=== PATIENT | female | born 1995 | race Caucasian/White ===

== ENCOUNTER 2018-07-27 01:30 | Inpatient (IN) | payer BC ==
[2018-07-27] MEDS ORDERED: Nalbuphine 10 MG/1 ML Vial IVPUSH PRN (01:59)
[2018-07-27] MEDS ORDERED: Misoprostol 200 MCG Tab PO PRN (01:59)
[2018-07-27] MEDS ORDERED: Water For Irrigation,Sterile 1,000 ML Container IRR PRN (01:59)
[2018-07-27] MEDS ORDERED: Tranexamic Acid 1,000 MG in Sodium Chloride 0.9% 100 ML IV PRN (01:59)
[2018-07-27] MEDS ORDERED: Methylergonovine 0.2 MG/1 ML Amp IM PRN (01:59)
[2018-07-27] MEDS ORDERED: Butorphanol 1 MG/ML SDV IVPUSH PRN (01:59)
[2018-07-27] MEDS ORDERED: Lidocaine 1% 50 ML MDV INJECT PRN (01:59)
[2018-07-27] MEDS ORDERED: Carboprost Tromethamine 250 MCG/1 ML Amp IM PRN (01:59)
[2018-07-27] MEDS ORDERED: Sodium Chloride 0.9% 2.5 ML Syringe FLUSH PRN (01:59)
[2018-07-27] MEDS ORDERED: Sodium Chloride 0.9% 10 ML Syringe FLUSH PRN (01:59)
[2018-07-27] MEDS ORDERED: Sodium Chloride 0.9% 10 ML SDV IV PRN (01:59)
[2018-07-27] MEDS ORDERED: Oxytocin/0.9 % Sodium Chloride 30 UNIT/500 ML BAG IV SCH (02:00)
[2018-07-27] MEDS: Lactated Ringers 1,000 ML IV SCH ×2 (02:46→03:41)
--- NOTE | 2018-07-27 03:02 | PCM.PREANE ---
Preanesthetic Assessment - Anesthesia/Transfusion/Family Hx Anesthesia History: Prior Anesthesia Without Reaction Family History of Anesthesia Reaction: No Transfusion History: No Prior Transfusion(s) - Review of Systems General: No Symptoms Pulmonary: No Symptoms Cardiovascular: No Symptoms Gastrointestinal: No Symptoms Neurological: No Symptoms Other: Reports: None - Physical Assessment Height: 5 ft 5 in Weight: 104.326 kg ASA Class: 2 Mental Status: Alert & Oriented x3 Airway Class: Mallampati = 2 Dentition: Reports: Normal Dentition Thyro-Mental Finger Breadths: 3 Mouth Opening Finger Breadths: 3 ROM/Head Extension: Full Lungs: Clear to Auscultation, Normal Respiratory Effort Cardiovascular: Regular Rate, Regular Rhythm - Lab Values: Laboratory Last Values WBC 13.24 K/uL (4.0-11.0) H 07/27/18 02:30 RBC 4.13 M/uL (4.30-5.90) L 07/27/18 02:30 Hgb 11.8 g/dL (12.0-16.0) L 07/27/18 02:30 Hct 35.6 % (36.0-46.0) L 07/27/18 02:30 MCV 86.2 fL (80.0-98.0) 07/27/18 02:30 MCH 28.6 pg (27.0-32.0) 07/27/18 02:30 MCHC 33.1 g/dL (31.0-37.0) 07/27/18 02:30 RDW Std Deviation 42.1 fl (28.0-62.0) 07/27/18 02:30 RDW Coeff of Rey 14 % (11.0-15.0) 07/27/18 02:30 Plt Count 214 K/uL (150-400) 07/27/18 02:30 MPV 10.50 fL (7.40-12.00) 07/27/18 02:30 Nucleated RBC % 0.0 /100WBC 07/27/18 02:30 Nucleated RBCs # 0 K/uL 07/27/18 02:30 - Allergies Allergies/Adverse Reactions: Allergies Allergy/AdvReac Type Severity Reaction Status Date / Time No Known Allergies Allergy Verified 07/27/18 01:58 - Acknowledgements Anesthesia Type Planned: Epidural Pt an Appropriate Candidate for the Planned Anesthesia: Yes Alternatives and Risks of Anesthesia Discussed w Pt/Guardian: Yes Pt/Guardian Understands and Agrees with Anesthesia Plan: Yes PreAnesthesia Questionnaire HEENT History: Reports: None Cardiovascular History: Reports: None Respiratory History: Reports: None Gastrointestinal History: Reports: GERD Genitourinary History: Reports: None [employer] History: Reports: : 1 Para: 0 LMP (Approximate): Musculoskeletal History: Reports: None Neurological History: Reports: None Psychiatric History: Reports: None Endocrine/Metabolic History: Reports: Obesity/BMI 30+ Hematologic History: Reports: None Immunologic History: Reports: None Oncologic (Cancer) History: Reports: None Dermatologic History: Reports: None - Infectious Disease History Infectious Disease History: Reports: None - Past Surgical History GI Surgical History: Reports: Appendectomy, Other (See Below) Other GI Surgeries/Procedures: as a teenager - HOME MEDS Home Medications: Home Meds PNV95/Ferrous Fumarate/FA [ Tablet] 1 tab PO DAILY 06/04/18 [History] - CURRENT (IN HOUSE) MEDS Current Meds: Current Medications Butorphanol Tartrate (Stadol) 1 mg IVPUSH Q1H PRN PRN Reason: Pain Last Admin: 07/27/18 02:42 Dose: 1 mg Carboprost Tromethamine (Hemabate Ds) 250 mcg IM ASDIRECTED PRN PRN Reason: Post Hemorrhage Lactated Ringer's (Ringers, Lactated) 1,000 mls @ 150 mls/hr IV ASDIRECTED ANGÉLICA Last Admin: 07/27/18 02:46 Dose: 999 mls/hr Oxytocin/Sodium Chloride (Oxytocin 30 Unit/500 Ml-Ns) 30 unit in 500 mls @ 999 mls/hr IV TITRATE ANGÉLICA Tranexamic Acid 1,000 mg/ (Sodium Chloride) 110 mls @ 660 mls/hr IV ONETIME PRN PRN Reason: Bleeding Lidocaine HCl (Xylocaine 1%) 50 ml INJECT ONETIME PRN PRN Reason: Laceration repair Methylergonovine Maleate (Methergine) 0.2 mg IM ASDIRECTED PRN PRN Reason: Post Hemorrhage Misoprostol (Cytotec) 200 mcg PO ONETIME PRN PRN Reason: Post Hemorrhage Nalbuphine HCl (Nubain) 10 mg IVPUSH Q1H PRN PRN Reason: Pain (severe 7-10) Sodium Chloride (Saline Flush) 10 ml FLUSH ASDIRECTED PRN PRN Reason: Keep Vein Open Sodium Chloride (Saline Flush) 2.5 ml FLUSH ASDIRECTED PRN PRN Reason: Keep Vein Open Sodium Chloride (Normal Saline) 10 ml IV ASDIRECTED PRN PRN Reason: IV Use Sterile Water (Sterile Water For Irrigation) 1,000 ml IRR ASDIRECTED PRN PRN Reason: delivery
[2018-07-27] MEDS ORDERED: Lidocaine HCl/EPINEPHrine 5 ML IJ ONE (03:04)
--- NOTE | 2018-07-27 07:21 | PCM.DEL ---
L & D Note - General Info Date of Service: 07/27/18 Mother's Due Date: 08/16/18 - Delivery Note Labor: Spontaneous Delivery Outcome: Livebirth Infant Delivery Method: Spontaneous Vaginal Delivery-Single Presentation: Left Occiput Anterior (FRANSISCO) Nuchal Cord: None Prep: Other Anesthesia Type: Epidural Amniotic Fluid Description: Clear Episiotomy Type: None Laceration: Labial (right labial single suture placed for hemostasis) Suture type: Vicryl Suture size: 3-0 Placenta: Intact, Spontaneous Cord: 2 Vessels Estimated Blood Loss: 200 Resuscitation Needed: No [place]: Suctioned Score 1 min: 9 Score 5 min: 10 Delivery Comments (Free Text/Narrative):: Male infant, weight pending. - General Info Date of Service: 07/27/18 - Patient Data Weight - Most Recent: 104.326 kg Lab Results Last 24 Hours: Laboratory Results - last 24 hr 07/27/18 07/27/18 Range/Units 02:30 02:30 WBC 13.24 H (4.0-11.0) K/uL RBC 4.13 L (4.30-5.90) M/uL Hgb 11.8 L (12.0-16.0) g/dL Hct 35.6 L (36.0-46.0) % MCV 86.2 (80.0-98.0) fL MCH 28.6 (27.0-32.0) pg MCHC 33.1 (31.0-37.0) g/dL RDW Std Deviation 42.1 (28.0-62.0) fl RDW Coeff of Rey 14 (11.0-15.0) % Plt Count 214 (150-400) K/uL MPV 10.50 (7.40-12.00) fL Nucleated RBC % 0.0 /100WBC Nucleated RBCs # 0 K/uL Blood Type O POSITIVE Antibody Screen NEGATIVE Med Orders - Current: Current Medications Butorphanol Tartrate (Stadol) 1 mg IVPUSH Q1H PRN PRN Reason: Pain Last Admin: 07/27/18 02:42 Dose: 1 mg Carboprost Tromethamine (Hemabate Ds) 250 mcg IM ASDIRECTED PRN PRN Reason: Post Hemorrhage Lactated Ringer's (Ringers, Lactated) 1,000 mls @ 150 mls/hr IV ASDIRECTED ANGÉLICA Last Admin: 07/27/18 03:41 Dose: 150 mls/hr Oxytocin/Sodium Chloride (Oxytocin 30 Unit/500 Ml-Ns) 30 unit in 500 mls @ 999 mls/hr IV TITRATE [facility] Tranexamic Acid 1,000 mg/ (Sodium Chloride) 110 mls @ 660 mls/hr IV ONETIME PRN PRN Reason: Bleeding Lidocaine HCl (Xylocaine 1%) 50 ml INJECT ONETIME PRN PRN Reason: Laceration repair Methylergonovine Maleate (Methergine) 0.2 mg IM ASDIRECTED PRN PRN Reason: Post Hemorrhage Misoprostol (Cytotec) 200 mcg PO ONETIME PRN PRN Reason: Post Hemorrhage Nalbuphine HCl (Nubain) 10 mg IVPUSH Q1H PRN PRN Reason: Pain (severe 7-10) Sodium Chloride (Saline Flush) 10 ml FLUSH ASDIRECTED PRN PRN Reason: Keep Vein Open Sodium Chloride (Saline Flush) 2.5 ml FLUSH ASDIRECTED PRN PRN Reason: Keep Vein Open Sodium Chloride (Normal Saline) 10 ml IV ASDIRECTED PRN PRN Reason: IV Use Sterile Water (Sterile Water For Irrigation) 1,000 ml IRR ASDIRECTED PRN PRN Reason: delivery Discontinued Medications Fentanyl/Bupivacaine HCl (Fnfzzfjm-Atfhl-Hs 2 Mcg/Ml-0.125%) Confirm Administered Dose 100 mls @ as directed .ROUTE .STK-MED ONE Stop: 07/27/18 03:05 Lidocaine/Epinephrine (Lidocaine 1.5%-Epi 1:200,000) Confirm Administered Dose 5 ml IJ .STK-MED ONE Stop: 07/27/18 03:05 - Problem List & Annotations (1) Vaginal delivery SNOMED Code(s): 132860651 Code(s): O80 - ENCOUNTER FOR FULL-TERM UNCOMPLICATED DELIVERY Status: Acute Current Visit: Yes - Problem List Review Problem List Initiated/Reviewed/Updated: Yes - My Orders Last 24 Hours: My Active Orders 07/27/18 01:59 Patient Status [ADT] Routine Non Stress Test [RC] PER UNIT ROUTINE May Shower [RC] ASDIRECTED Notify Provider [RC] PRN Up ad Vanessa [RC] ASDIRECTED Vital Signs [RC] PER UNIT ROUTINE Butorphanol [Stadol] 1 mg IVPUSH Q1H PRN Carboprost Tromethamine [Hemabate DS] 250 mcg IM ASDIRECTED PRN Lidocaine 1% [Xylocaine 1%] 50 ml INJECT ONETIME PRN Methylergonovine [Methergine] 0.2 mg IM ASDIRECTED PRN Nalbuphine [Nubain] 10 mg IVPUSH Q1H PRN Sodium Chloride 0.9% [Normal Saline] 10 ml IV ASDIRECTED PRN Sodium Chloride 0.9% [Saline Flush] 10 ml FLUSH ASDIRECTED PRN Sodium Chloride 0.9% [Saline Flush] 2.5 ml FLUSH ASDIRECTED PRN Tranexamic Acid [Cyklokapron] 1,000 mg Sodium Chloride 0.9% [Normal Saline] 100 ml IV ONETIME Water For Irrigation,Sterile [Sterile Water for Irrigation] 1,000 ml IRR ASDIRECTED PRN miSOPROStol [Cytotec] 200 mcg PO ONETIME PRN Scalp Electrode [WOMSER] Per Unit Routine Peripheral IV Insertion Adult [OM.PC] Routine Resuscitation Status Routine 07/27/18 02:00 Lactated Ringers [Ringers, Lactated] 1,000 ml IV ASDIRECTED Oxytocin/0.9 % Sodium Chloride [Oxytocin 30 Unit/500 ML-NS] 30 unit in 500 ml IV TITRATE
[2018-07-27] MEDS ORDERED: oxyCODONE 5 MG Tab PO PRN (07:22)
[2018-07-27] MEDS ORDERED: Lanolin 100% Cream 7 GM Tube TOP PRN (07:22)
[2018-07-27] MEDS ORDERED: Benzocaine/Menthol 20%-0.5% Spray 78 GM Cannister TOP PRN (07:22)
[2018-07-27] MEDS ORDERED: Witch Hazel Medicated Pads 40/Jar TOP PRN (07:22)
[2018-07-27] MEDS ORDERED: Bisacodyl 10 MG Supp RECTAL PRN (07:22)
[2018-07-27] MEDS ORDERED: Ibuprofen 400 MG Tab PO PRN (07:22)
[2018-07-27] MEDS ORDERED: Acetaminophen 500 MG Tab PO PRN ×2 (07:22)
[2018-07-27] MEDS ORDERED: Docusate Sodium 100 MG Cap PO PRN (07:22)
--- NOTE | 2018-07-27 08:39 | PCM48HPAN ---
Post Anesthesia Note - EVALUATION WITHIN 48HRS OF ANESTHETIC Vital Signs in Normal Range: Yes Patient Participated in Evaluation: Yes Respiratory Function Stable: Yes Airway Patent: Yes Cardiovascular Function Stable: Yes Hydration Status Stable: Yes Pain Control Satisfactory: Yes Nausea and Vomiting Control Satisfactory: Yes Mental Status Recovered: Yes
[2018-07-27] MEDS: Ibuprofen 800 MG Tab PO PRN ×2 (11:45→18:45)
--- NOTE | 2018-07-27 14:41 | OR ---
SURGEON: Radha Ramirez M.D. DATE OF PROCEDURE: 07/27/2018 PREOPERATIVE DIAGNOSIS: A 37-3/7 weeks intrauterine , active spontaneous labor. POSTOPERATIVE DIAGNOSIS: A 37-3/7 weeks intrauterine , active spontaneous labor. PROCEDURE: Term spontaneous vaginal delivery with repair of a right labial laceration. ANESTHESIA: Epidural. ESTIMATED BLOOD LOSS: Less than 300 mL. FINDINGS: Live-born male, score 9 and 10. Weight is pending. COMPLICATIONS: None known. DISPOSITION: Mother and baby are in LDRP in good condition. BRIEF HISTORY: This is a 23-year-old female. She is G1, P0, who presents in active spontaneous labor, initially 5 cm dilated, rapidly changed to 7 cm. She had category 1 heart tones. She received an epidural for pain control. After the epidural, she had artificial rupture of membranes. She then progressed to complete. DESCRIPTION OF PROCEDURE: The patient in dorsal lithotomy position. The patient pushed over a 45-minute time period to a 5+ station at which time the head was delivered spontaneously and atraumatically over the perineum with support with subsequent delivery of the infant's shoulders and body without any difficulty. The was bulb suctioned by nose and mouth and after the cord had ceased to pulsate, it was doubly clamped and cut and the was handed to the mother in the presence of the nurse attending delivery. The infant was a liveborn male, scores 9 and 10. Weight is pending at the time of dictation. Upon inspection of pelvis and perineum, there were no periurethral, vaginal sidewall, cervical, rectal, or perineal laceration. There was a right labial laceration that did require a [id number] suture of 3-0 Vicryl for hemostasis. Pitocin was initiated after delivery of the to assist with delivery. The placenta which was delivered spontaneously intact with two-vessel and the patient was aware that there was a two vessel cord based on ultrasound. There were no known complications. Mother and baby are in LDR in good condition. NARCISO / EVI /[id number]
[2018-07-28] MEDS: Ibuprofen 800 MG Tab PO PRN (04:12)
--- NOTE | 2018-07-28 08:46 | PCM.PNPP ---
- General Info Date of Service: 07/28/18 Subjective Update: 23 yo P1 s/p stable , [place] , Vital signs stable , PPD 1 Functional Status: Reports: Pain Controlled, Tolerating Diet, Ambulating, Urinating - Review of Systems General: Reports: No Symptoms HEENT: Reports: No Symptoms Pulmonary: Reports: No Symptoms Cardiovascular: Reports: No Symptoms Gastrointestinal: Reports: No Symptoms Genitourinary: Reports: No Symptoms Musculoskeletal: Reports: No Symptoms Skin: Reports: No Symptoms Neurological: Reports: No Symptoms - General Info Date of Service: 07/28/18 - Patient Data Vital Signs - Most Recent: Last Vital Signs Temp 36.6 C 07/28/18 04:35 Pulse 94 07/28/18 04:35 Resp 16 07/28/18 04:35 BP 119/56 L 07/28/18 04:35 Pulse Ox 97 07/28/18 04:35 Weight - Most Recent: 104.326 kg Lab Results - Last 24 Hours: Laboratory Results - last 24 hr 07/28/18 Range/Units 05:03 Hgb 7.9 L (12.0-16.0) g/dL Hct 25.0 L (36.0-46.0) % Med Orders - Current: Current Medications Acetaminophen (Tylenol Extra Strength) 500 mg PO Q4H PRN PRN Reason: Pain Acetaminophen (Tylenol Extra Strength) 1,000 mg PO Q4H PRN PRN Reason: Pain Benzocaine/Menthol (Dermoplast Pain Relief 20%-0.5% [place]) 78 gm TOP ASDIRECTED PRN PRN Reason: Perineal Comfort Measure Last Admin: 07/27/18 11:45 Dose: 78 gm Bisacodyl (Dulcolax) 10 mg RECTAL ONETIME PRN PRN Reason: Constipation Docusate Sodium (Colace) 100 mg PO BID PRN PRN Reason: Constipation Emollient Ointment (Lansinoh Hpa) 0 gm TOP ASDIRECTED PRN PRN Reason: Sore Nipples Last Admin: 07/27/18 11:46 Dose: 7 gm Ibuprofen (Motrin) 400 mg PO Q4H PRN PRN Reason: Pain Ibuprofen (Motrin) 800 mg PO Q6H PRN PRN Reason: Pain Last Admin: 07/28/18 04:12 Dose: 800 mg Oxycodone HCl (Oxycodone) 5 mg PO Q2H PRN PRN Reason: Pain Last Admin: 07/27/18 18:46 Dose: 5 mg Witch Lia (Tucks) 1 pad TOP ASDIRECTED PRN PRN Reason: comfort care Last Admin: 07/27/18 11:46 Dose: 1 pad Discontinued Medications Butorphanol Tartrate (Stadol) 1 mg IVPUSH Q1H PRN PRN Reason: Pain Last Admin: 07/27/18 02:42 Dose: 1 mg Carboprost Tromethamine (Hemabate Ds) 250 mcg IM ASDIRECTED PRN PRN Reason: Post Hemorrhage Lactated Ringer's (Ringers, Lactated) 1,000 mls @ 150 mls/hr IV ASDIRECTED ANGÉLICA Last Admin: 07/27/18 03:41 Dose: 150 mls/hr Oxytocin/Sodium Chloride (Oxytocin 30 Unit/500 Ml-Ns) 30 unit in 500 mls @ 999 mls/hr IV TITRATE ANGÉLICA Tranexamic Acid 1,000 mg/ (Sodium Chloride) 110 mls @ 660 mls/hr IV ONETIME PRN PRN Reason: Bleeding Fentanyl/Bupivacaine HCl (Pjyonhjy-Evfec-Dg 2 Mcg/Ml-0.125%) Confirm Administered Dose 100 mls @ as directed .ROUTE .STK-MED ONE Stop: 07/27/18 03:05 Lidocaine HCl (Xylocaine 1%) 50 ml INJECT ONETIME PRN PRN Reason: Laceration repair Lidocaine/Epinephrine (Lidocaine 1.5%-Epi 1:200,000) Confirm Administered Dose 5 ml IJ .STK-MED ONE Stop: 07/27/18 03:05 Methylergonovine Maleate (Methergine) 0.2 mg IM ASDIRECTED PRN PRN Reason: Post Hemorrhage Misoprostol (Cytotec) 200 mcg PO ONETIME PRN PRN Reason: Post Hemorrhage Nalbuphine HCl (Nubain) 10 mg IVPUSH Q1H PRN PRN Reason: Pain (severe 7-10) Sodium Chloride (Saline Flush) 10 ml FLUSH ASDIRECTED PRN PRN Reason: Keep Vein Open Sodium Chloride (Saline Flush) 2.5 ml FLUSH ASDIRECTED PRN PRN Reason: Keep Vein Open Sodium Chloride (Normal Saline) 10 ml IV ASDIRECTED PRN PRN Reason: IV Use Sterile Water (Sterile Water For Irrigation) 1,000 ml IRR ASDIRECTED PRN PRN Reason: delivery - Infant Interaction Support Person: - Recovery Exam Fundal Tone: Firm Fundal Level: 1 Fingerbreadths Below Umbilicus Fundal Placement: Midline Lochia Amount: Scant Lochia Color: Rubra/Red Perineum Description: Intact, Minimal Bruising/Swelling Episiotomy/Laceration: Approximated Bladder Status: Nonpalpable, Voiding Urinary Elimination: Voided - Exam General: Alert HEENT: Pupils Equal Neck: Supple Lungs: Clear to Auscultation Cardiovascular: Regular Rate, Regular Rhythm GI/Abdominal Exam: Normal Bowel Sounds Extremities: Normal Inspection Psy/Mental Status: Alert - Problem List & Annotations (1) Vaginal delivery SNOMED Code(s): 259119496 Code(s): O80 - ENCOUNTER FOR FULL-TERM UNCOMPLICATED DELIVERY Status: Acute Current Visit: Yes - Problem List Review Problem List Initiated/Reviewed/Updated: Yes - Assessment Assessment:: 23 yo P1 s/p stable , Anemia , VSS stable PPD 1 denies any complains today - Plan Plan:: COntinue Iron supplement at home vitamins Pain control with OTC tylenol and motrin
== END 2018-07-28 15:58 | disposition home or self-care (01) | DRG 560 ==
LOC: MW.OBCHECK 01:30 → MW.OB 01:32 → MW.OBCHECK 02:00 → OBSVTOIN 06:41 → MW.OB 06:41
PROVIDERS: ADMIT Obstetrics & Gynecology; ATTEND Obstetrics & Gynecology
PROC: 10E0XZZ Delivery of Products of Conception, External Approach (ICD-10-PCS; principal; 2018-07-27)
PROC: 0UQMXZZ Repair Vulva, External Approach (ICD-10-PCS; 2018-07-27)
PROC: 10907ZC Drainage of Amniotic Fluid, Therapeutic from Products of Conception, Via Natural or Artificial Opening (ICD-10-PCS; 2018-07-27)
DX: O99.02 Anemia complicating childbirth (principal); O70.0 First degree perineal laceration during delivery; D64.9 Anemia, unspecified; Z3A.37 37 weeks gestation of pregnancy; Z37.0 Single live birth
CPT/HCPCS: 36415; 51702; 59025; 59409; 82803; 85014; 85018; 85027; 86850; 86900; 86901; A9270-GY; J0595; J7120

== ENCOUNTER 2020-06-21 18:16 | Emergency (ER) | payer BC, OTHER ==
--- NOTE | 2020-06-21 18:38 | PCM.EKG ---
#1 Interpretation EKG Date: 06/21/20 Time: 18:21 Rhythm: NSR Rate (Beats/Min): 82 [place]: Normal P-Wave: Present QRS: Normal ST-T: Normal QT: Normal FL/PQ Interval: 140 Comparison: NA - No Prior EKG EKG Interpretation Comments: no evidence of ischemia
[2020-06-21] MEDS ORDERED: Sodium Chloride 0.9% 1,000 ML IV ONE (18:58)
--- NOTE | 2020-06-21 19:08 | EDM.PDOC ---
ED HPI GENERAL MEDICAL PROBLEM - General Chief Complaint: Chest Pain Stated Complaint: CHEST PAIN Time Seen by Provider: 06/21/20 18:29 Source of Information: Reports: Patient History Limitations: Reports: No Limitations - History of Present Illness INITIAL COMMENTS - FREE TEXT/NARRATIVE: HISTORY AND PHYSICAL: History of present illness: Patient is a 25-year-old female who presents to the emergency room with complaints of midsternal chest pain x 3 days. She reports that the pain is intermittent and fluctuates in severity. Has not identified anything that makes the pain better or worse. She has had some mild nausea associated with the chest pain. States the pain will occasionally go into her back and down her left arm. Currently pain is localized and nonradiating. She appears anxious, stating "I feel like there is something really wrong". She went to the clinic, but dissatisfied as they wouldn't "do any tests". Patient denies any fever, chills, headache, change in vision, syncope or near syncope. Denies any back pain, shortness of breath or cough. Denies any abdominal pain, vomiting, diarrhea, constipation or dysuria. Has not noted any blood in urine or stool. No concern for . Patient has been eating and drinking appropriately. No recent travel. No recent sick close contacts. States she has a significant family history of heart disease, no sudden cardiac . Personal history of anxiety/depression. No personal cardiopulmonary disease. Review of systems: As per history of present illness and below otherwise all systems reviewed and negative. Past medical history: As per history of present illness and as reviewed below otherwise noncontributory. Surgical history: As per history of present illness and as reviewed below otherwise nonc ontributory. Social history: See social history for further information Family history: As per history of present illness and as reviewed below otherwise noncontributory. Physical exam: General: Well developed and well nourished 25 year old female. Alert and orientated x 3. Nontoxic in appearance and in no acute distress. Vital signs are stable and have been reviewed by me. Nursing notes were reviewed. HEENT: Atraumatic, normocephalic, pupils equal and reactive bilaterally, negative for conjunctival pallor or scleral icterus, mucous membranes moist, neck supple, nontender, trachea midline. No drooling or trismus noted. No meningeal signs. No hot potato voice noted. Lungs: Clear to auscultation bilaterally. No wheezes, rales, or rhonchi. Chest nontender. Normal work of breathing, no accessory muscles used. Heart: S1S2, regular rate and rhythm without overt murmur, gallops, or rubs. No JVD. No peripheral edema Abdomen: Soft, nondistended, nontender. Normoactive bowel sounds. Negative for masses or costovertebral tenderness. Skin: Intact, warm, dry. No lesions or rashes noted. Hematologic: No petechiae or purpra. Mucosa appropriate color and normal nail bed color and refill. Extremities: Atraumatic, moves all extremities per self without difficulty or deficits, negative for cords or calf pain. Neurovascular unremarkable. Neuro: Awake, alert, oriented. Cranial nerves II through XII unremarkable. Cerebellum unremarkable. Motor and sensory unremarkable throughout. Exam nonfocal. Psychiatric: Mood and affect are appropriate. Normal thought process. Answering questions appropriately. Notes: *This patient was seen and evaluated during the 2019 SARS-CoV-2 novel coronavirus pandemic period. Community viral transmission is ongoing at time of this encounter and the emergency department is operating under pandemic response procedures. EKG shows a normal sinus rhythm with rate of 82, no concern for STEMI. No significant lab findings. Chest x-ray shows no acute intrathoracic abnormality. VSS. I have talked with the patient about today's findings, in addition to providing specific details for plan of care. She would like to try something for her anxiety related to this chest pain, which may be the cause of her pain. She states if her pain improves with the Ativan, she will call her MD on Wednesday to have her medications adjusted. Patient feels improvement. VSS. Reassessment at the time of disposition demonstrates that the patient is in no acute distress. The patient is stable for discharge, counseling was provided and we discussed in great detail signs and symptoms that would prompt them to return to the Emergency Department. Medication, follow up and supportive care measures were reviewed and discussed. Voices understanding and is agreeable to plan of care. Denies any further questions or concerns at this time. Diagnostics: CBC, CMP, Troponin, EKG, CXR, D.Dimer, TSH Therapeutics: IV fluids, Ativan Prescription: Ativan (#6) Impression: Chest pain Plan: 1. Your EKG and chest x-ray are within normal limits. Your potassium and TSH (hyperthyroid) are slightly low. These values are not low enough to require any intervention at this time. I would like these rechecked in a few weeks. If your symptoms should worsen, new symptoms develop or any of the signs and symptoms we discussed should arise please return to the emergency room or call 911 (if needed). 2. You can alternate Tylenol and ibuprofen as needed for pain and fever management. If you felt relief with the Ativan, you can take one tab every 8 hours as needed. This medication may cause drowsiness, so do not take while driving or needing to be functioning outside the house. 3. We encourage you to follow up with your primary care provider in the next few days for re-evaluation and further care/management. Definitive disposition and diagnosis as appropriate pending reevaluation and review of above. Chest Pain Score (Numeric/FACES): 6 - Related Data Allergies Allergy/AdvReac Type Severity Reaction Status Date / Time No Known Allergies Allergy Verified 06/21/20 18:33 Home Meds: Home Meds LORazepam [Ativan] 0.5 mg PO TID PRN #6 tab 06/21/20 [Rx] Sertraline [Zoloft] 06/21/20 [History] Past Medical History HEENT History: Reports: None Cardiovascular History: Reports: None Respiratory History: Reports: None Gastrointestinal History: Reports: GERD Genitourinary History: Reports: None [employer] History: Reports: Musculoskeletal History: Reports: None Neurological History: Reports: None Psychiatric History: Reports: Anxiety, Depression Endocrine/Metabolic History: Reports: Obesity/BMI 30+ Hematologic History: Reports: None Immunologic History: Reports: None Oncologic (Cancer) History: Reports: None Dermatologic History: Reports: None - Infectious Disease History Infectious Disease History: Reports: None - Past Surgical History GI Surgical History: Reports: Appendectomy, Other (See Below) Other GI Surgeries/Procedures: as a teenager Social & Family History - Family History Family Medical History: No Pertinent Family History - Tobacco Use Tobacco Use Status *Q: Current Every Day Tobacco User Years of Tobacco use: 5 Packs/Tins Daily: 0.1 - Caffeine Use Caffeine Use: Reports: Tea - Recreational Drug Use Recreational Drug Use: No ED ROS GENERAL - Review of Systems Review Of Systems: Comprehensive ROS is negative, except as noted in HPI. ED EXAM, GENERAL - Physical Exam Exam: See Below (See dictation) Course - Vital Signs Last Recorded V/S: Last Vital Signs Temp 98.6 F 06/21/20 18:29 Pulse 77 06/21/20 19:51 Resp 16 06/21/20 19:51 BP 130/48 L 06/21/20 19:51 Pulse Ox 99 06/21/20 19:51 - Orders/Labs/Meds Orders: Active Orders 24 hr Category Date Time Status EKG Documentation Completion [RC] STAT Care 06/21/20 18:46 Active Labs: Laboratory Tests 06/21/20 06/21/20 06/21/20 Range/Units 18:30 18:30 18:30 WBC 10.40 (4.0-11.0) K/uL RBC 5.11 (4.30-5.90) M/uL Hgb 15.6 (12.0-16.0) g/dL Hct 44.7 (36.0-46.0) % MCV 87.5 (80.0-98.0) fL MCH 30.5 (27.0-32.0) pg MCHC 34.9 (31.0-37.0) g/dL RDW Std Deviation 40.4 (28.0-62.0) fl RDW Coeff of Rey 13 (11.0-15.0) % Plt Count 256 (150-400) K/uL MPV 10.20 (7.40-12.00) fL Neut % (Auto) 61.7 (48.0-80.0) % Lymph % (Auto) 28.5 (16.0-40.0) % [place] % (Auto) 7.4 (0.0-15.0) % Eos % (Auto) 2.2 (0.0-7.0) % Baso % (Auto) 0.2 (0.0-1.5) % Neut # (Auto) 6.4 H (1.4-5.7) K/uL Lymph # (Auto) 3.0 H (0.6-2.4) K/uL [place] # (Auto) 0.8 (0.0-0.8) K/uL Eos # (Auto) 0.2 (0.0-0.7) K/uL Baso # (Auto) 0.0 (0.0-0.1) K/uL Nucleated RBC % 0.0 /100WBC Nucleated RBCs # 0 K/uL D-Dimer, Quantitative 0.34 (0.0-0.50) mg/L FEU Sodium 140 (136-145) mmol/L Potassium 3.3 L (3.5-5.1) mmol/L Chloride 102 (98-107) mmol/L Carbon Dioxide 22.9 (21.0-32.0) mmol/L BUN 6 L (7.0-18.0) mg/dL Creatinine 0.8 (0.6-1.0) mg/dL Est Cr Clr Drug Dosing 94.44 mL/min Estimated GFR (MDRD) > 60.0 ml/min Glucose 114 H (74-106) mg/dL Calcium 8.9 (8.5-10.1) mg/dL Total Bilirubin 0.4 (0.2-1.0) mg/dL AST 25 (15-37) IU/L ALT 21 (14-63) IU/L Alkaline Phosphatase 75 (46-116) U/L Troponin I < 0.050 (0.000-0.056) ng/mL Total Protein 8.1 (6.4-8.2) g/dL Albumin 4.0 (3.4-5.0) g/dL Globulin 4.1 H (2.6-4.0) g/dL Albumin/Globulin Ratio 1.0 (0.9-1.6) TSH 3rd Generation 0.30 L (0.36-3.74) uIU/mL Urine Color Urine Appearance Urine pH (5.0-8.0) Ur Specific [place] (1.001-1.035) Urine Protein (NEGATIVE) mg/dL Urine Glucose (UA) (NEGATIVE) mg/dL Urine Ketones (NEGATIVE) mg/dL Urine Occult Blood (NEGATIVE) Urine Nitrite (NEGATIVE) Urine Bilirubin (NEGATIVE) Urine Urobilinogen (<2.0) EU/dL Ur Leukocyte Esterase (NEGATIVE) Urine HCG, Qual (NEGATIVE) Influenza Type A RNA (NEGATIVE) Influenza Type B RNA (NEGATIVE) SARS-CoV-2 RNA (HERMAN) (NEGATIVE) 06/21/20 06/21/20 06/21/20 Range/Units 18:55 18:55 19:10 WBC (4.0-11.0) K/uL RBC (4.30-5.90) M/uL Hgb (12.0-16.0) g/dL Hct (36.0-46.0) % MCV (80.0-98.0) fL MCH (27.0-32.0) pg MCHC (31.0-37.0) g/dL RDW Std Deviation (28.0-62.0) fl RDW Coeff of Rey (11.0-15.0) % Plt Count (150-400) K/uL MPV (7.40-12.00) fL Neut % (Auto) (48.0-80.0) % Lymph % (Auto) (16.0-40.0) % [place] % (Auto) (0.0-15.0) % Eos % (Auto) (0.0-7.0) % Baso % (Auto) (0.0-1.5) % Neut # (Auto) (1.4-5.7) K/uL Lymph # (Auto) (0.6-2.4) K/uL [place] # (Auto) (0.0-0.8) K/uL Eos # (Auto) (0.0-0.7) K/uL Baso # (Auto) (0.0-0.1) K/uL Nucleated RBC % /100WBC Nucleated RBCs # K/uL D-Dimer, Quantitative (0.0-0.50) mg/L FEU Sodium (136-145) mmol/L Potassium (3.5-5.1) mmol/L Chloride (98-107) mmol/L Carbon Dioxide (21.0-32.0) mmol/L BUN (7.0-18.0) mg/dL Creatinine (0.6-1.0) mg/dL Est Cr Clr Drug Dosing mL/min Estimated GFR (MDRD) ml/min Glucose (74-106) mg/dL Calcium (8.5-10.1) mg/dL Total Bilirubin (0.2-1.0) mg/dL AST (15-37) IU/L ALT (14-63) IU/L Alkaline Phosphatase (46-116) U/L Troponin I (0.000-0.056) ng/mL Total Protein (6.4-8.2) g/dL Albumin (3.4-5.0) g/dL Globulin (2.6-4.0) g/dL Albumin/Globulin Ratio (0.9-1.6) TSH 3rd Generation (0.36-3.74) uIU/mL Urine Color YELLOW Urine Appearance CLEAR Urine pH 5.5 (5.0-8.0) Ur Specific [place] <= 1.005 (1.001-1.035) Urine Protein NEGATIVE (NEGATIVE) mg/dL Urine Glucose (UA) NEGATIVE (NEGATIVE) mg/dL Urine Ketones NEGATIVE (NEGATIVE) mg/dL Urine Occult Blood NEGATIVE (NEGATIVE) Urine Nitrite NEGATIVE (NEGATIVE) Urine Bilirubin NEGATIVE (NEGATIVE) Urine Urobilinogen 0.2 (<2.0) EU/dL Ur Leukocyte Esterase NEGATIVE (NEGATIVE) Urine HCG, Qual NEGATIVE (NEGATIVE) Influenza Type A RNA NEGATIVE (NEGATIVE) Influenza Type B RNA NEGATIVE (NEGATIVE) SARS-CoV-2 RNA (HERMAN) NEGATIVE (NEGATIVE) Meds: Medications Discontinued Medications Generic Name Dose Route Start Last Admin Trade Name Freq PRN Reason Stop Dose Admin Sodium Chloride 1,000 mls @ 999 mls/hr 06/21/20 18:58 06/21/20 19:07 Normal Saline IV 06/21/20 19:58 999 mls/hr STAT ONE Administration Lorazepam 1 mg 06/21/20 20:06 06/21/20 20:11 Ativan PO 06/21/20 20:07 1 mg ONETIME ONE Administration Departure - Departure Time of Disposition: 20:15 Disposition: Home, Self-Care 01 Clinical Impression: Chest pain Qualifiers: Chest pain type: unspecified Qualified Code(s): R07.9 - Chest pain, unspecified Prescriptions: LORazepam [Ativan] 0.5 mg PO TID PRN #6 tab PRN Reason: Anxiety Instructions: Nonspecific Chest Pain, Adult, [id number] Forms: ED Department Discharge Additional Instructions: The following information is given to patients seen in the emergency department who are being discharged to home. This information is to outline your options for follow-up care. We provide all patients seen in our emergency department with a follow-up referral. The need for follow-up, as well as the timing and circumstances, are variable depending upon the specifics of your emergency department visit. If you don't have a primary care physician on staff, we will provide you with a referral. We always advise you to contact your personal physician following an emergency department visit to inform them of the circumstance of the visit and for follow-up with them and/or the need for any referrals to a consulting specialist. The emergency department will also refer you to a specialist when appropriate. This referral assures that you have the opportunity for follow-up care with a specialist. All of these measure are taken in an effort to provide you with optimal care, which includes your follow-up. Under all circumstances we always encourage you to contact your private physician who remains a resource for coordinating your care. When calling for follow-up care, please make the office aware that this follow-up is from your recent emergency room visit. If for any reason you are refused follow-up, please contact the [facility] Emergency Department at and asked to speak to the emergency department charge nurse. [facility] [address] [place] [id number] [address] Thank you for choosing the [facility] emergency department in [place] for your medical needs today. It was a pleasure caring for you. Today you were seen in the emergency department for chest pain. 1. Your EKG and chest x-ray are within normal limits. Your potassium and TSH (hyperthyroid) are slightly low. These values are not low enough to require any intervention at this time. I would like these rechecked in a few weeks. If your symptoms should worsen, new symptoms develop or any of the signs and symptoms we discussed should arise please return to the emergency room or call [phone] (if needed). 2. You can alternate Tylenol and ibuprofen as needed for pain and fever management. If you felt relief with the Ativan, you can take one tab every 8 hours as needed. This medication may cause drowsiness, so do not take while driving or needing to be functioning outside the house. 3. We encourage you to follow up with your primary care provider in the next few days for re-evaluation and further care/management. Sepsis Event Note (ED) - Evaluation Sepsis Screening Result: No Definite Risk - Focused Exam Vital Signs: Vital Signs Temp Pulse Resp BP Pulse Ox 06/21/20 19:51 77 16 130/48 L 99 06/21/20 18:29 98.6 F 87 18 133/84 98 - My Orders Last 24 Hours: My Active Orders 06/21/20 18:46 EKG Documentation Completion [RC] STAT - Assessment/Plan Last 24 Hours: My Active Orders 06/21/20 18:46 EKG Documentation Completion [RC] STAT
[2020-06-21 19:12] LABS: BLOOD UREA NITROGEN,BUN 6 mg/dL (7.0-18.0); CARBON DIOXIDE,CO2 22.9 mmol/L (21.0-32.0); CHLORIDE,CL 102 mmol/L (98-107); GLUCOSE RANDOM 114 mg/dL (74-106); POTASSIUM,K 3.3 mmol/L (3.5-5.1); SODIUM,NA 140 mmol/L (136-145)
--- NOTE | 2020-06-21 19:29 | CR ---
INDICATION: chest pain CHEST, ONE VIEW An AP radiograph of the chest was performed. Comparison: No previous studies are currently available for comparison. The lungs appear clear and no pleural effusions are identified. The cardiomediastinal silhouette and pulmonary vasculature appear normal, as do the visualized bones. IMPRESSION: No acute intrathoracic abnormality identified. STEVE ABRAHAM MD [employer] Dictated by: Chuy Abraham MD @ 06/21/2020 19:28:43 (Electronically Signed)
[2020-06-21 19:57] LABS: CORONAVIRUS COVID-19 NAA NEGATIVE (NEGATIVE); INFLUENZA A NAA NEGATIVE (NEGATIVE); INFLUENZA B NAA NEGATIVE (NEGATIVE)
[2020-06-21] MEDS ORDERED: LORazepam 1 MG Tab PO ONE (20:06)
== END 2020-06-21 20:34 | disposition home or self-care (01) ==
LOC: MW.ED 18:16
DX: R07.9 Chest pain, unspecified (principal); E66.9 Obesity, unspecified; Z68.34 Body mass index [BMI] 34.0-34.9, adult; Z20.822 Contact with and (suspected) exposure to COVID-19; Z72.0 Tobacco use
CPT/HCPCS: 0240U; 36415; 71045; 80053; 81003; 81025; 84443; 84484; 85025; 85379; 93005; 99285; A9270; J7030; 93010; 99283

== ENCOUNTER 2021-01-15 09:42 | Day surgery (SDC) | payer OTHER, BC ==
[2021-01-15] MEDS ORDERED: Albuterol 0.083% 2.5 MG/3 ML Neb Soln NEB PRN (10:00)
[2021-01-15] MEDS ORDERED: Scopolamine 1.5 MG Transdermal Patch TRDERM ONE (10:00)
[2021-01-15] MEDS ORDERED: Metoclopramide 10 MG/2 ML SDV IVPUSH PRN (10:00)
[2021-01-15] MEDS ORDERED: fentaNYL 100 MCG/2 ML SDV IVPUSH PRN (10:00)
[2021-01-15] MEDS ORDERED: Morphine 2 MG/ML SYRINGE IVPUSH PRN (10:00)
[2021-01-15] MEDS ORDERED: HYDROmorphone 1 MG/ML Syringe IVPUSH PRN (10:00)
[2021-01-15] MEDS ORDERED: Naloxone 0.4 MG/ML SDV IVPUSH PRN (10:00)
[2021-01-15] MEDS ORDERED: Ondansetron 4 MG/2 ML SDV IVPUSH PRN (10:00)
[2021-01-15] MEDS ORDERED: Scopolamine 1.5 MG Transdermal Patch ONE (10:03)
--- NOTE | 2021-01-15 10:11 | PCM.PREANE ---
Preanesthetic Assessment - Procedure Proposed Procedure: Lap Eda - Anesthesia/Transfusion/Family Hx Anesthesia History: Prior Anesthesia Without Reaction Family History of Anesthesia Reaction: No Transfusion History: No Prior Transfusion(s) Type of Transfusion Reactions: Reports: Unknown - Review of Systems General: No Symptoms Pulmonary: No Symptoms (Smokes) Cardiovascular: No Symptoms Gastrointestinal: No Symptoms Neurological: No Symptoms Other: Reports: Depression, Anxiety - Physical Assessment NPO Status Date: 01/14/21 NPO Status Time: 19:00 Vital Signs: Last Vital Signs Temp Pulse 66 01/15/21 10:00 Resp 16 01/15/21 10:00 BP 131/796 H 01/15/21 10:00 Pulse Ox 97 01/15/21 10:00 Height: 5 ft 4 in Weight: 87.997 kg ASA Class: 2 Mental Status: Alert & Oriented x3 Airway Class: Mallampati = 2 Dentition: Reports: Normal Dentition Thyro-Mental Finger Breadths: 3 Mouth Opening Finger Breadths: 3 ROM/Head Extension: Full Lungs: Clear to Auscultation, Normal Respiratory Effort - Allergies Allergies/Adverse Reactions: Allergies Allergy/AdvReac Type Severity Reaction Status Date / Time lorazepam Allergy Facial Verified 01/09/21 11:15 Swelling - Acknowledgements Anesthesia Type Planned: General Anesthesia Pt an Appropriate Candidate for the Planned Anesthesia: Yes Alternatives and Risks of Anesthesia Discussed w Pt/Guardian: Yes Pt/Guardian Understands and Agrees with Anesthesia Plan: Yes PreAnesthesia Questionnaire HEENT History: Reports: None Cardiovascular History: Reports: None Respiratory History: Reports: None Gastrointestinal History: Reports: Cholelithiasis, GERD Genitourinary History: Reports: None [employer] History: Reports: Musculoskeletal History: Reports: None Neurological History: Reports: None, Other (See Below) Other Neuro History: degenerative disc disease Psychiatric History: Reports: Anxiety, Depression Endocrine/Metabolic History: Reports: Obesity/BMI 30+, Other (See Below) Other Endocrine/Metabolic History: hx of Thyroid nodules Hematologic History: Reports: None Immunologic History: Reports: None Oncologic (Cancer) History: Reports: None Dermatologic History: Reports: None - Infectious Disease History Infectious Disease History: Reports: None - Past Surgical History Head Surgeries/Procedures: Reports: None HEENT Surgical History: Reports: None Cardiovascular Surgical History: Reports: None Respiratory Surgical History: Reports: None GI Surgical History: Reports: Appendectomy Female Surgical History: Reports: None Endocrine Surgical History: Reports: None Neurological Surgical History: Reports: None Musculoskeletal Surgical History: Reports: None - SUBSTANCE USE Tobacco Use Status *Q: Light Tobacco User Tobacco Use Within Last Twelve Months: Cigarettes Recreational Drug Use History: No - HOME MEDS Home Medications: Home Meds Escitalopram Oxalate 5 mg PO QAM 01/09/21 [History] QUEtiapine Fumarate [Seroquel] 25 mg PO BEDTIME 01/09/21 [History] levonorgestreL [Mirena] 1 each IUTERINE ONETIME 01/09/21 [History] - CURRENT (IN HOUSE) MEDS Current Meds: Current Medications Lactated Ringer's (Ringers, Lactated) 1,000 mls @ 125 mls/hr IV ASDIRECTED ANGÉLICA Cefoxitin Sodium 2 gm/ Premix 50 mls @ 100 mls/hr IV ONETIME ONE Stop: 01/15/21 11:12 Pregabalin (Pregabalin 75 Mg Cap) 150 mg PO ONETIME ONE Stop: 01/15/21 10:44 Scopolamine (Scopolamine 1.5 Mg Transdermal Patch) 0 mg TRDERM ONETIME ONE Stop: 01/15/21 10:01
[2021-01-15] MEDS ORDERED: cefOXitin 2 GM in Premix Bag 1 BAG IV ONE (10:43)
[2021-01-15] MEDS ORDERED: Pregabalin 75 MG Cap PO ONE (10:43)
[2021-01-15] MEDS ORDERED: Lactated Ringers 1,000 ML IV SCH (10:45)
[2021-01-15] MEDS ORDERED: Octyl 2-Cyanoacrylate 1 Tube ONE ×2 (11:01→14:04)
[2021-01-15] MEDS ORDERED: Bupivacaine 25%/EPINEPHrine/PF 30 ML ONE (11:02)
[2021-01-15] MEDS ORDERED: Sugammadex Sodium 200 MG/2 ML VIAL ONE (12:03)
[2021-01-15] MEDS ORDERED: Dexamethasone 4 MG/ML 5 ML MDV ONE (12:03)
[2021-01-15] MEDS ORDERED: Rocuronium Bromide 50 MG/5 ML Syringe ONE ×2 (12:03→13:14)
[2021-01-15] MEDS ORDERED: Propofol 200 MG/20 ML SDV ONE (12:03)
[2021-01-15] MEDS ORDERED: fentaNYL 100 MCG/2 ML SDV ONE ×2 (12:03→13:06)
[2021-01-15] MEDS ORDERED: Ondansetron 4 MG/2 ML SDV ONE (12:03)
[2021-01-15] MEDS ORDERED: cefOXitin 100 ML ONE (12:03)
[2021-01-15] MEDS ORDERED: Lidocaine 2% 5 ML SDV ONE (12:03)
[2021-01-15] MEDS ORDERED: Midazolam 1 MG/ML 2 ML SDV ONE (12:03)
[2021-01-15] MEDS ORDERED: Sodium Chloride 0.9% 20 ML ONE (12:41)
[2021-01-15] MEDS ORDERED: ePHEDrine 50 MG/ML SDV ONE (12:41)
[2021-01-15] MEDS ORDERED: Ketorolac 30 MG/ML SDV ONE (13:50)
--- NOTE | 2021-01-15 14:22 | PCM.OPNOTE ---
- General Post-Op/Procedure Note Date of Surgery/Procedure: 01/15/21 Operative Procedure(s): Laparoscopic cholecystectomy Findings: gallstones dictation number [id number] Pre Op Diagnosis: symptomatic cholelithiasis Post-Op Diagnosis: symptomatic cholelithiasis Anesthesia Technique: General ET Tube Primary Surgeon: Ramón Jennings Pathology: gallbladder EBL in mLs: 10 Complications: None Condition: Good
--- NOTE | 2021-01-15 14:41 | PCM.POSTAN ---
POST ANESTHESIA ASSESSMENT - MENTAL STATUS Mental Status: Alert - VITAL SIGNS Vital Signs: Last Vital Signs Temp 99.0 F 01/15/21 14:29 Pulse 95 01/15/21 14:35 Resp 16 01/15/21 14:35 BP 119/54 L 01/15/21 14:35 Pulse Ox 98 01/15/21 14:35 - RESPIRATORY Respiratory Status: Respiratory Rate WNL, Airway Patent, O2 Saturation Stable, Supplemental Oxygen Free Text/Narrative:: Pt. had mild laryngospasm after extubation. Broke with positive pressure and oral airway in place. To PACU with O2 via FM. VSS. Pt. awake and conversing. - CARDIOVASCULAR CV Status: Pulse Rate WNL, Blood Pressure Stable - GASTROINTESTINAL GI Status: No Symptoms - POST OP HYDRATION Hydration Status: Adequate & Stable
--- NOTE | 2021-01-15 14:47 | PCM48HPAN ---
Post Anesthesia Note - EVALUATION WITHIN 48HRS OF ANESTHETIC Vital Signs in Normal Range: Yes Patient Participated in Evaluation: Yes Respiratory Function Stable: Yes Airway Patent: Yes Cardiovascular Function Stable: Yes Hydration Status Stable: Yes Pain Control Satisfactory: Yes Nausea and Vomiting Control Satisfactory: Yes Mental Status Recovered: Yes Vital Signs: Last Vital Signs Temp 99.0 F 01/15/21 14:29 Pulse 96 01/15/21 14:46 Resp 13 01/15/21 14:46 BP 115/60 01/15/21 14:46 Pulse Ox 94 L 01/15/21 14:46
--- NOTE | 2021-01-15 21:32 | OR ---
SURGEON: FIDELIA GUIDO MD DATE OF PROCEDURE: 01/15/2021 PREOPERATIVE DIAGNOSIS: Symptomatic cholelithiasis. POSTOPERATIVE DIAGNOSES: Symptomatic cholelithiasis, chronic cholecystitis PRIMARY SURGEON: Fidelia Guido MD. ANESTHESIA: General. ESTIMATED BLOOD LOSS: 10 mL. SPECIMEN: Gallbladder. SURGERY: Laparoscopic cholecystectomy. REASON FOR PROCEDURE: The patient is a pleasant 25-year-old female who says over the last 6 months did have right upper quadrant pain, especially comes after eating greasy foods. She had an ultrasound which showed large 2 cm gallstones, but no pericholecystic fluid. No gallbladder wall thickening. She had no elevation of LFTs. This could be symptomatic cholelithiasis. Went over risks, goals, alternatives of procedure again with her. Risks include, but not limited to, bleeding, infection, bile leak, injury to nearby structures, common bile duct or duodenum or need to convert to open, hernia formation or this could be something other than gallbladder disease. Patient understands and wishes to proceed. OPERATION NARRATIVE: The patient was brought back to the OR. She was prepped and draped in usual sterile fashion. SCDs placed. Preoperative antibiotics were given and anesthesia was provided by the Anesthesia team After time-out was performed, an infraumbilical incision was made. It was carried down to the fascia. Fascia was entered using open Lanre technique. A Lanre trocar was placed and insufflation began and pneumoperitoneum was established. Now, 3 more 5-mm trocars were placed, one in the midepigastric, one in the right upper quadrant, one in the right lower quadrant, all under direct visualization. The fundus of the gallbladder was grasped and elevated. Gallbladder had slight more whitish hue to it. The critical view was then carefully dissected out, mainly with blunt dissection. Indocyanine green was used which showed cystic duct. Another bolus was given which showed let up of the cystic artery. Of note, patient had somewhat short cystic artery coming off what looked to be like the right hepatic. Again, these were pulsatile structures that did not let up only with the bolus. Cystic duct and cystic artery were clipped and transected. The rest of the gallbladder was taken off the liver with Harmonic Scalpel. No other tubular structures were countered. The gallbladder was placed in EndoCatch bag and removed. The area was suctioned and irrigated. There was good hemostasis. Clips appeared to be in good position and intact. Now, the 5 mm trocars were removed and pneumoperitoneum released and the Lanre trocar also removed. Now, the fascia was closed with 0-Vicryl stay suture that were already replaced previously in the fascia. All the trocar sites were then closed with 4-0 Monocryl and Dermabond. The remaining of the local was also injected into the trocar sites. The patient was transferred to recovery room in stable condition. JAZMIN STEVE /[id number]
== END 2021-01-15 16:05 | disposition home or self-care (01) ==
LOC: MW.SDS 09:42
PROVIDERS: ATTEND Surgery
DX: K80.10 Calculus of gallbladder with chronic cholecystitis without obstruction (principal); E55.9 Vitamin D deficiency, unspecified; F17.210 Nicotine dependence, cigarettes, uncomplicated; E66.9 Obesity, unspecified; Z88.8 Allergy status to other drugs, medicaments and biological substances; Z79.899 Other long term (current) drug therapy; Z90.49 Acquired absence of other specified parts of digestive tract
CPT/HCPCS: 47562; 81025; 88304; A9270; J0131; J0694; J1100; J1170; J1885; J2250; J2405; J2704; J3010; J3490; J7030; J7120; 00790

== ENCOUNTER 2021-04-06 08:55 | Emergency (ER) | payer OTHER, BC ==
[2021-04-06] MEDS ORDERED: Azithromycin 250 MG Tab PO ONE (09:41)
--- NOTE | 2021-04-06 09:50 | EDM.PDOC ---
ED HPI GENERAL MEDICAL PROBLEM - General Chief Complaint: ENT Problem Stated Complaint: BRIGHT RED TONGUE AND SOAR THROAT Time Seen by Provider: 04/06/21 09:18 - History of Present Illness INITIAL COMMENTS - FREE TEXT/NARRATIVE: HISTORY AND PHYSICAL: History of present illness: This is a 25-year-old female who presents ER today complaining of a red tongue that started this morning when she woke up. Patient reports that she is currently on lamotrigine and was concerned that this might be a rash related to the lamotrigine. Patient reports that she looked up some pictures and want to make sure that she can continue taking her lamotrigine. Patient denies any vesicles inside her mouth. Patient reports that the red tongue has resolved since she is been here in the ED. Her significant other has taken a picture of her tongue and it does appear to be somewhat erythematous in the posterior aspect of the tongue at the time of the picture but that appears to have cleared currently. Patient reports that she was seen in the clinic on Wednesday secondary to having fevers x2 days at that time with associated sore throat. Patient reports that she was told that she likely had a viral infection without discharged on antibiotics. Patient denies any recent fevers, shakes, chills over the last 48 hours. Patient denies any nausea or vomiting or diarrhea although she reports decreased appetite. Patient has any urinary symptoms such as dysuria, frequency, urgency. Patient does have a history of appendectomy/cholecystectomy. Patient has a history of hypertension, diabetes, liver, lung, kidney problems. Patient has occasional tobacco with no alcohol or drugs. Review of systems: As per history of present illness and below otherwise all systems reviewed and negative. Past medical history: As per history of present illness and as reviewed below otherwise noncontributory. Surgical history: As per history of present illness and as reviewed below otherwise noncontributory. Social history: No reported history of drug abuse. Family history: As per history of present illness and as reviewed below otherwise noncontributory. Physical exam: This patient was seen and evaluated during the 2019 SARS-CoV-2 novel coronavirus pandemic period. Community viral transmission is ongoing at time of this encounter and the emergency department is operating under pandemic response procedures. Constitutional: Patient is oriented to person, place, and time. Appears well- developed and well-nourished. No distress. HEENT: Moist mucous membranes Head: Normocephalic and atraumatic Eyes: Right eye exhibits no discharge. Left eye exhibits no discharge. No scleral icterus Neck: Normal range of motion. No tracheal deviation present. Neck supple, no nuchal rigidity, no photophobia, no Kernig's sign or Brudzinski sign, patient does not present with signs or symptoms of be consistent with meningitis. Cardiovascular: Normal rate and regular rhythm. No murmurs gallops or rubs Pulmonary: Effort normal, no respiratory distress. No wheezing rales or rhonchi Abdominal: No distention, soft, nontender, no rebound or guarding, normal active bowel sounds Musculoskeletal: Normal range of motion Neurologic: Alert and oriented to person, place and time. Skin: [place], warm and dry. No noted rash Psychiatric: Normal mood and affect. Behavior is normal. Judgment and thought content normal. Nursing note and vital signs have been reviewed Patient's physical exam is significant for an normal-appearing tongue without evidence of strawberry tongue. Patient's oropharynx is somewhat erythematous bilaterally and swollen with no exudate. Patient does have swollen, tender submandibular lymph nodes. Assessment and plan: 25-year-old female who presents ER today secondary to a red tongue and sore throat and was concerned that it was related to the Lamictal. Patient's right tongue has resolved. This is not appear to be a critical rash for Lamictal and I would recommend continuing her Lamictal less she has any new developed rash. Patient does have tender bilateral swollen lymph nodes in the submandibular region along with bilateral erythematous pharynx with no exudates. Given the red tongue I wonder if this was early onset of a strawberry tongue with a sore throat which would make me concerned about possible strep throat. Patient will get given a dose of Zithromax here in the ED and will be given a prescription for Zithromax to take. Reassessment at the time of disposition demonstrates that the patient is in no acute distress. The patient has remained stable throughout the entire ED visit and is without objective evidence for acute process requiring urgent intervention or hospitalization. The patient is stable for discharge, counseling is provided as documented above, discussed symptomatic treatment and specific conditions for return. I have spoken with the patient/caregiver and discussed todays findings, in addition to providing specific details for the plan of care. Questions are answered and there is agreement with the plan. Definitive disposition and diagnosis as appropriate pending reevaluation and review of above. throat Pain Score (Numeric/FACES): 6 - Related Data Allergies Allergy/AdvReac Type Severity Reaction Status Date / Time lorazepam Allergy Facial Verified 04/06/21 09:08 Swelling Home Meds: Home Meds Escitalopram Oxalate 5 mg PO QAM 01/09/21 [History] QUEtiapine Fumarate [Seroquel] 25 mg PO BEDTIME 01/09/21 [History] levonorgestreL [Mirena] 1 each IUTERINE ONETIME 01/09/21 [History] Azithromycin [Zithromax] 250 mg PO DAILY #4 tablet 04/06/21 [Rx] lamoTRIgine 25 mg PO DAILY 04/06/21 [History] Past Medical History HEENT History: Reports: None Cardiovascular History: Reports: None Respiratory History: Reports: None Gastrointestinal History: Reports: Cholelithiasis, GERD Genitourinary History: Reports: None 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: Musculoskeletal History: Reports: None Neurological History: Reports: Other (See Below) Other Neuro History: degenerative disc disease Psychiatric History: Reports: Anxiety, Depression Endocrine/Metabolic History: Reports: Obesity/BMI 30+, Other (See Below) Other Endocrine/Metabolic History: hx of Thyroid nodules Hematologic History: Reports: None Immunologic History: Reports: None Oncologic (Cancer) History: Reports: None Dermatologic History: Reports: None - Infectious Disease History Infectious Disease History: Reports: None - Past Surgical History Head Surgeries/Procedures: Reports: None HEENT Surgical History: Reports: None Cardiovascular Surgical History: Reports: None Respiratory Surgical History: Reports: None GI Surgical History: Reports: Appendectomy, Cholecystectomy Female Surgical History: Reports: None Endocrine Surgical History: Reports: None Neurological Surgical History: Reports: None Musculoskeletal Surgical History: Reports: None Oncologic Surgical History: Reports: None Dermatological Surgical History: Reports: None Social & Family History - Family History Family Medical History: No Pertinent Family History - Tobacco Use Years of Tobacco use: 5 Packs/Tins Daily: 0.4 - Caffeine Use Caffeine Use: Reports: None - Recreational Drug Use Recreational Drug Use: No ED ROS GENERAL - Review of Systems Review Of Systems: See Below ED EXAM, GENERAL - Physical Exam Exam: See Below Course - Vital Signs Last Recorded V/S: Last Vital Signs Temp 97.7 F 04/06/21 09:09 Pulse 86 04/06/21 09:09 Resp 17 04/06/21 09:09 BP 127/66 04/06/21 09:09 Pulse Ox 99 04/06/21 09:09 - Orders/Labs/Meds Meds: Medications Discontinued Medications Generic Name Dose Route Start Last Admin Trade Name Charles PRN Reason Stop Dose Admin Azithromycin 500 mg 04/06/21 09:41 Azithromycin 250 Mg Tab PO 04/06/21 09:42 Q24H ONE Departure - Departure Time of Disposition: 09:49 Disposition: Home, Self-Care 01 Condition: Good Clinical Impression: Pharyngitis - Discharge Information Prescriptions: Azithromycin [Zithromax] 250 mg PO DAILY #4 tablet Instructions: Pharyngitis Forms: ED Department Discharge Additional Instructions: You were seen and evaluated in ER today secondary to concerns of a rash to your tongue that may been related to your Lamictal/lamotrigine. The rash in your tongue appears to have resolved does not look like a typical concerning rash from Lamictal/lamotrigine. I would continue taking your lamotrigine unless you develop any new or concerning symptoms or new rashes develop. Given your sore throat and your swollen lymph nodes in your symptoms for approximate 4 days I think it would be prudent to start you on Zithromax empirically treat you for strep throat. As this could also give you sinus symptoms of a red tongue. You will be given a dose of Zithromax here in the ED and you will be sent a prescription for Zithromax as well. Please make an appointment to follow-up with your doctor next week for reevaluation. The following information is given to patients seen in the emergency department who are being discharged to home. This information is to outline your options for follow-up care. We provide all patients seen in our emergency department with a follow-up referral. The need for follow-up, as well as the timing and circumstances, are variable depending upon the specifics of your emergency department visit. If you don't have a primary care physician on staff, we will provide you with a referral. We always advise you to contact your personal physician following an emergency department visit to inform them of the circumstance of the visit and for follow-up with them and/or the need for any referrals to a consulting specialist. The emergency department will also refer you to a specialist when appropriate. This referral assures that you have the opportunity for follow-up care with a specialist. All of these measure are taken in an effort to provide you with optimal care, which includes your follow-up. Under all circumstances we always encourage you to contact your private physician who remains a resource for coordinating your care. When calling for follow-up care, please make the office aware that this follow-up is from your recent emergency room visit. If for any reason you are refused follow-up, please contact the [facility] Emergency Department at and asked to speak to the emergency department charge nurse. [facility] [address] [place] [address] [id number] [address] [address] Sepsis Event Note (ED) - Evaluation Sepsis Screening Result: No Definite Risk - Focused Exam Vital Signs: Vital Signs Temp Pulse Resp BP Pulse Ox 04/06/21 09:09 97.7 F 86 17 127/66 99
== END 2021-04-06 10:03 | disposition home or self-care (01) ==
LOC: MW.ED 08:55
DX: J02.9 Acute pharyngitis, unspecified (principal); E66.9 Obesity, unspecified; Z88.8 Allergy status to other drugs, medicaments and biological substances; Z79.899 Other long term (current) drug therapy; Z72.0 Tobacco use; Z68.31 Body mass index [BMI] 31.0-31.9, adult
CPT/HCPCS: 99282; A9270

== ENCOUNTER 2021-05-08 14:29 | Emergency (ER) | payer OTHER ==
[2021-05-08] MEDS ORDERED: Ketorolac 30 MG/ML SDV IVPUSH ONE (14:47)
[2021-05-08] MEDS ORDERED: Acetaminophen 500 MG Tab PO ONE (14:47)
--- NOTE | 2021-05-08 14:49 | EDM.PDOC ---
ED HPI GENERAL MEDICAL PROBLEM - General Chief Complaint: General Stated Complaint: MEDICATION REACTION Time Seen by Provider: 05/08/21 14:30 Source of Information: Reports: Patient History Limitations: Reports: No Limitations - History of Present Illness INITIAL COMMENTS - FREE TEXT/NARRATIVE: 26-year-old female presents for 4 days of flulike symptoms. Patient states that she initially started with a rash which is since gone away. After that she began to develop body aches, joint pain, chest pain, shortness of breath, nausea without vomiting, headaches. She denies cough. She is unvaccinated against Covid. She went to her primary care physician this morning and had a strep, Covid, influenza test which were all negative. She called her primary care physician back and said that she still felt bad so she was told to come to the emergency department. Abdominal Pain Score (Numeric/FACES): 7 - Related Data Allergies Allergy/AdvReac Type Severity Reaction Status Date / Time lorazepam Allergy Facial Verified 05/08/21 14:44 Swelling Home Meds: Home Meds Escitalopram Oxalate 5 mg PO QAM 01/09/21 [History] QUEtiapine Fumarate [Seroquel] 25 mg PO BEDTIME 01/09/21 [History] levonorgestreL [Mirena] 1 each IUTERINE ONETIME 01/09/21 [History] lamoTRIgine 25 mg PO DAILY 04/06/21 [History] Acetaminophen/Butalbital/Caff [Fioricet 325-50-40 MG] 1 each PO Q6H PRN #20 tab 05/08/21 [Rx] Past Medical History HEENT History: Reports: None Cardiovascular History: Reports: None Respiratory History: Reports: None Gastrointestinal History: Reports: Cholelithiasis, GERD Genitourinary History: Reports: None 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: Musculoskeletal History: Reports: None Neurological History: Reports: Other (See Below) Other Neuro History: degenerative disc disease Psychiatric History: Reports: Anxiety, Depression Endocrine/Metabolic History: Reports: Obesity/BMI 30+, Other (See Below) Other Endocrine/Metabolic History: hx of Thyroid nodules Hematologic History: Reports: None Immunologic History: Reports: None Oncologic (Cancer) History: Reports: None Dermatologic History: Reports: None - Infectious Disease History Infectious Disease History: Reports: None - Past Surgical History Head Surgeries/Procedures: Reports: None HEENT Surgical History: Reports: None Cardiovascular Surgical History: Reports: None Respiratory Surgical History: Reports: None GI Surgical History: Reports: Appendectomy, Cholecystectomy Female Surgical History: Reports: None Endocrine Surgical History: Reports: None Neurological Surgical History: Reports: None Musculoskeletal Surgical History: Reports: None Oncologic Surgical History: Reports: None Dermatological Surgical History: Reports: None Social & Family History - Family History Family Medical History: No Pertinent Family History - Tobacco Use Second Hand Smoke Exposure: No - Caffeine Use Caffeine Use: Reports: None - Recreational Drug Use Recreational Drug Use: No ED ROS GENERAL - Review of Systems Review Of Systems: Comprehensive ROS is negative, except as noted in HPI. ED EXAM, GENERAL - Physical Exam Exam: See Below Exam Limited By: No Limitations General Appearance: Alert, WD/WN, No Apparent Distress Ears: Hearing Grossly Normal Throat/Mouth: Normal Voice, No Airway Compromise Head: Atraumatic, Normocephalic Neck: Normal Inspection Respiratory/Chest: No Respiratory Distress, Lungs Clear, Normal Breath Sounds, No Accessory Muscle Use Cardiovascular: Normal Peripheral Pulses, Regular Rate, Rhythm Extremities: Normal Inspection Neurological: Alert, Normal Cognition, Normal Gait Psychiatric: Normal Affect, Normal Mood Skin Exam: Warm, Dry, Intact, Normal Color Course - Vital Signs Last Recorded V/S: Last Vital Signs Temp 97.3 F 05/08/21 15:57 Pulse 67 05/08/21 15:57 Resp 16 05/08/21 15:57 BP 119/82 05/08/21 15:57 Pulse Ox 96 05/08/21 15:57 - Orders/Labs/Meds Orders: Active Orders 24 hr Category Date Time Status Saline Lock Insert [OM.PC] Stat Oth 05/08/21 14:47 Ordered Labs: Laboratory Tests 05/08/21 05/08/21 05/08/21 Range/Units 15:00 15:00 15:06 WBC 15.19 H (4.0-11.0) K/uL RBC 5.21 (4.30-5.90) M/uL Hgb 16.9 H (12.0-16.0) g/dL Hct 48.1 H (36.0-46.0) % MCV 92.3 (80.0-98.0) fL MCH 32.4 H (27.0-32.0) pg MCHC 35.1 (31.0-37.0) g/dL RDW Std Deviation 42.7 (28.0-62.0) fl RDW Coeff of Rey 13 (11.0-15.0) % Plt Count 275 (150-400) K/uL MPV 10.00 (7.40-12.00) fL Neut % (Auto) 89.8 H (48.0-80.0) % Lymph % (Auto) 8.4 L (16.0-40.0) % [place] % (Auto) 1.7 (0.0-15.0) % Eos % (Auto) 0.0 (0.0-7.0) % Baso % (Auto) 0.1 (0.0-1.5) % Neut # (Auto) 13.6 H (1.4-5.7) K/uL Lymph # (Auto) 1.3 (0.6-2.4) K/uL [place] # (Auto) 0.3 (0.0-0.8) K/uL Eos # (Auto) 0.0 (0.0-0.7) K/uL Baso # (Auto) 0.0 (0.0-0.1) K/uL Nucleated RBC % 0.0 /100WBC Nucleated RBCs # 0 K/uL Sodium 138 (136-145) mmol/L Potassium 4.3 (3.5-5.1) mmol/L Chloride 104 (98-107) mmol/L Carbon Dioxide 23.8 (21.0-32.0) mmol/L BUN 13 (7.0-18.0) mg/dL Creatinine 0.7 (0.6-1.0) mg/dL Est Cr Clr Drug Dosing 107.01 mL/min Estimated GFR (MDRD) > 60.0 ml/min Glucose 129 H (74-106) mg/dL Lactic Acid (0.4-2.0) mmol/L Calcium 9.7 (8.5-10.1) mg/dL Magnesium 2.3 (1.8-2.4) mg/dL Total Bilirubin 0.7 (0.2-1.0) mg/dL AST 33 (15-37) IU/L ALT 26 (14-63) IU/L Alkaline Phosphatase 95 (46-116) U/L Total Protein 8.9 H (6.4-8.2) g/dL Albumin 4.5 (3.4-5.0) g/dL Globulin 4.4 H (2.6-4.0) g/dL Albumin/Globulin Ratio 1.0 (0.9-1.6) Influenza Type A RNA NEGATIVE (NEGATIVE) Influenza Type B RNA NEGATIVE (NEGATIVE) SARS-CoV-2 RNA (HERMAN) NEGATIVE (NEGATIVE) 05/08/21 Range/Units 15:20 WBC (4.0-11.0) K/uL RBC (4.30-5.90) M/uL Hgb (12.0-16.0) g/dL Hct (36.0-46.0) % MCV (80.0-98.0) fL MCH (27.0-32.0) pg MCHC (31.0-37.0) g/dL RDW Std Deviation (28.0-62.0) fl RDW Coeff of Rey (11.0-15.0) % Plt Count (150-400) K/uL MPV (7.40-12.00) fL Neut % (Auto) (48.0-80.0) % Lymph % (Auto) (16.0-40.0) % [place] % (Auto) (0.0-15.0) % Eos % (Auto) (0.0-7.0) % Baso % (Auto) (0.0-1.5) % Neut # (Auto) (1.4-5.7) K/uL Lymph # (Auto) (0.6-2.4) K/uL [place] # (Auto) (0.0-0.8) K/uL Eos # (Auto) (0.0-0.7) K/uL Baso # (Auto) (0.0-0.1) K/uL Nucleated RBC % /100WBC Nucleated RBCs # K/uL Sodium (136-145) mmol/L Potassium (3.5-5.1) mmol/L Chloride (98-107) mmol/L Carbon Dioxide (21.0-32.0) mmol/L BUN (7.0-18.0) mg/dL Creatinine (0.6-1.0) mg/dL Est Cr Clr Drug Dosing mL/min Estimated GFR (MDRD) ml/min Glucose (74-106) mg/dL Lactic Acid 1.0 (0.4-2.0) mmol/L Calcium (8.5-10.1) mg/dL Magnesium (1.8-2.4) mg/dL Total Bilirubin (0.2-1.0) mg/dL AST (15-37) IU/L ALT (14-63) IU/L Alkaline Phosphatase (46-116) U/L Total Protein (6.4-8.2) g/dL Albumin (3.4-5.0) g/dL Globulin (2.6-4.0) g/dL Albumin/Globulin Ratio (0.9-1.6) Influenza Type A RNA (NEGATIVE) Influenza Type B RNA (NEGATIVE) SARS-CoV-2 RNA (HERMAN) (NEGATIVE) Meds: Medications Discontinued Medications Generic Name Dose Route Start Last Admin Trade Name Freq PRN Reason Stop Dose Admin Acetaminophen 1,000 mg 05/08/21 14:47 05/08/21 15:02 Acetaminophen 500 Mg Tab PO 05/08/21 14:48 1,000 mg ONETIME ONE Administration Ketorolac Tromethamine 15 mg 05/08/21 14:47 05/08/21 15:03 Ketorolac 30 Mg/Ml Sdv IVPUSH 05/08/21 14:48 15 mg ONETIME ONE Administration Ondansetron HCl 4 mg 05/08/21 14:52 05/08/21 15:03 Ondansetron 4 Mg/2 Ml Sdv IVPUSH 05/08/21 14:53 4 mg ONETIME ONE Administration - Re-Assessments/Exams Free Text/Narrative Re-Assessment/Exam: 05/08/21 14:51 We will get basic labs, chest x-ray, influenza swab, Covid swab. 05/08/21 16:38 Labs were grossly unremarkable aside from mild leukocytosis. Patient symptoms are consistent with viral illness. Will discharge with Fioricet for headache. Recommend PMD follow-up. Return precautions were discussed at length. Departure - Departure Time of Disposition: 16:39 Disposition: Home, Self-Care 01 Condition: Good Clinical Impression: Adverse effects of medication Qualifiers: Encounter type: initial encounter Qualified Code(s): T50.905A - Adverse effect of unspecified drugs, medicaments and biological substances, initial encounter - Discharge Information Instructions: Chronic Drug Toxicity Forms: ED Department Discharge Additional Instructions: I would avoid taking lamotrigine until you can have this worked up by your primary care physician. Your labs are grossly unremarkable in the emergency department aside from mildly elevated white blood cell count. This can be a sign of infection including viral illnesses. Your Covid and influenza swabs w ere negative. I sent a medication called Mandeep to [place] pharmacy that can help with your headaches. Please follow-up with your primary care physician. If your symptoms worsen or you have any concerning symptom development please come back to the ER. The following information is given to patients seen in the emergency department who are being discharged to home. This information is to outline your options for follow-up care. We provide all patients seen in our emergency department with a follow-up referral. The need for follow-up, as well as the timing and circumstances, are variable depending upon the specifics of your emergency department visit. If you don't have a primary care physician on staff, we will provide you with a referral. We always advise you to contact your personal physician following an emergency department visit to inform them of the circumstance of the visit and for follow-up with them and/or the need for any referrals to a consulting specialist. The emergency department will also refer you to a specialist when appropriate. This referral assures that you have the opportunity for follow-up care with a specialist. All of these measure are taken in an effort to provide you with optimal care, which includes your follow-up. Under all circumstances we always encourage you to contact your private physician who remains a resource for coordinating your care. When calling for follow-up care, please make the office aware that this follow-up is from your recent emergency room visit. If for any reason you are refused follow-up, please contact the [facility] Emergency Department at and asked to speak to the emergency department charge nurse. Please follow up with your primary care physician. If you do not have a primary care physician, see below: [facility] [address] [place] [id number] [facility] [address] [place] [address] [facility] [address] [place] [id number] Sepsis Event Note (ED) - Evaluation Sepsis Screening Result: No Definite Risk - Focused Exam Vital Signs: Vital Signs Temp Temp Pulse Resp BP Pulse Ox 05/08/21 15:57 97.3 F 67 16 119/82 96 05/08/21 15:32 97.3 F 05/08/21 15:02 97.1 F 05/08/21 14:40 96.7 F L 77 20 128/76 96 - My Orders Last 24 Hours: My Active Orders 05/08/21 14:47 Saline Lock Insert [OM.PC] Stat - Assessment/Plan Last 24 Hours: My Active Orders 05/08/21 14:47 Saline Lock Insert [OM.PC] Stat
[2021-05-08] MEDS ORDERED: Ondansetron 4 MG/2 ML SDV IVPUSH ONE (14:52)
--- NOTE | 2021-05-08 15:30 | CR ---
INDICATION: Chest pain. TECHNIQUE: Chest 1 view. COMPARISON: Chest radiograph 06/21/2020. FINDINGS: No focal consolidation, pleural effusion, or pneumothorax. Normal heart size and pulmonary vascularity. The bones are unremarkable. IMPRESSION: No acute cardiopulmonary findings. Dictated by [place] Russell MD @ 05/08/2021 3:29:28 PM (Electronically Signed)
[2021-05-08 15:41] LABS: BLOOD UREA NITROGEN,BUN 13 mg/dL (7.0-18.0); CARBON DIOXIDE,CO2 23.8 mmol/L (21.0-32.0); CHLORIDE,CL 104 mmol/L (98-107); GLUCOSE RANDOM 129 mg/dL (74-106); POTASSIUM,K 4.3 mmol/L (3.5-5.1); SODIUM,NA 138 mmol/L (136-145)
[2021-05-08 16:00] LABS: CORONAVIRUS COVID-19 NAA NEGATIVE (NEGATIVE); INFLUENZA A NAA NEGATIVE (NEGATIVE); INFLUENZA B NAA NEGATIVE (NEGATIVE)
== END 2021-05-08 16:53 | disposition home or self-care (01) ==
LOC: MW.ED 14:29
DX: R21 Rash and other nonspecific skin eruption (principal); T50.905A Adverse effect of unspecified drugs, medicaments and biological substances, initial encounter; K21.9 Gastro-esophageal reflux disease without esophagitis; E66.9 Obesity, unspecified; Z68.32 Body mass index [BMI] 32.0-32.9, adult; Z88.5 Allergy status to narcotic agent; Z20.822 Contact with and (suspected) exposure to COVID-19
CPT/HCPCS: 0240U; 36415; 71045; 80053; 83605; 83735; 85025; 96374; 96375; 99283; A9270; J1885; J2405

== ENCOUNTER 2023-12-20 11:32 | Emergency (ER) | payer OTHER, BC ==
[2023-12-20] MEDS ORDERED: Sodium Chloride 0.9% 10 ML Syringe FLUSH PRN (11:53)
[2023-12-20] MEDS ORDERED: Sodium Chloride 0.9% 20 ML SDV IV PRN (11:53)
[2023-12-20] MEDS ORDERED: Sodium Chloride 0.9% 2.5 ML Syringe FLUSH PRN (11:53)
[2023-12-20] MEDS: Sodium Chloride 0.9% 1,000 ML IV ONE (12:05)
[2023-12-20 12:07] LABS: APPEARANCE,URINE CLEAR; BILIRUBIN,URINE NEGATIVE (NEGATIVE); COLOR,URINE YELLOW; GLUCOSE,URINE NEGATIVE (NEGATIVE); KETONES,URINE NEGATIVE (NEGATIVE); LEUKOCYTE ESTERASE,URINE NEGATIVE (NEGATIVE); NITRITE,URINE NEGATIVE (NEGATIVE); OCCULT BLOOD,URINE NEGATIVE (NEGATIVE); PROTEIN,URINE NEGATIVE (NEGATIVE); UROBILINOGEN,URINE 0.2 EU/dL (<2.0)
[2023-12-20 12:09] LABS: BASOPHILS ABSOLUTE AUTO 0.03 K/uL (0.00-0.20); BASOPHILS PERCENT AUTO 0.3 % (0.0-1.0); EOSINOPHILS ABSOLUTE AUTO 0.13 K/uL (0.00-0.45); EOSINOPHILS PERCENT AUTO 1.4 % (0.0-6.0); HEMOGLOBIN 15.9 g/dL (12.0-16.0); IMMATURE GRAN ABSOLUTE AUTO 0.02 K/uL (0.00-0.05); IMMATURE GRAN PERCENT AUTO 0.2 % (0.0-0.4); LYMPHOCYTES PERCENT AUTO 25.6 % (24.0-44.0); MEAN CORPUSCULAR HGB CONC 35.3 g/dL (32.0-36.0); MEAN CORPUSCULAR VOLUME 87.7 fL (83.0-99.0); MEAN PLATELET VOLUME 9.5 fL (9.4-12.3); MONOCYTES ABSOLUTE AUTO 0.58 K/uL (0.00-0.80); MONOCYTES PERCENT AUTO 6.2 % (0.0-8.0); NEUTROPHILS ABSOLUTE AUTO 6.22 K/uL (1.80-7.70); NEUTROPHILS PERCENT AUTO 66.3 % (41.0-71.0); PLATELET COUNT,PLT 261 K/uL (150-400); RED BLOOD CELL COUNT 5.13 M/uL (4.10-5.30); WHITE BLOOD CELL COUNT,WBC 9.38 K/uL (3.9-11.3)
[2023-12-20 12:39] LABS: ALANINE AMINOTRANSFERASE,ALT 26 IU/L (14-63); ALBUMIN 3.9 g/dL (3.4-5.0); ALKALINE PHOSPHATASE 103 U/L (46-116); ASPARTATE AMNIOTRANSFERASE,AST 20 IU/L (15-37); BILIRUBIN TOTAL 0.5 mg/dL (0.2-1.0); BLOOD UREA NITROGEN,BUN 10 mg/dL (7.0-18.0); CALCIUM 9.5 mg/dL (8.5-10.1); CARBON DIOXIDE,CO2 27.6 mmol/L (21.0-32.0); CHLORIDE,CL 103 mmol/L (98-107); CREATININE 0.9 mg/dL (0.6-1.0); ESTIMATED GFR 90 mL/min (>60); GLUCOSE RANDOM 115 mg/dL (74-106); MAGNESIUM 1.4 mg/dL (1.8-2.4); POTASSIUM,K 3.7 mmol/L (3.5-5.1); PRO B-TYPE NATRIUR PEPT,BNPPRO 28 pg/mL (0-125); SODIUM,NA 141 mmol/L (136-145)
[2023-12-20 12:44] LABS: AMPHETAMINES SCREEN, URINE PRESUMPTIVE POSITIVE (CUTOFF=500); BARBITURATE SCREEN,URINE NEGATIVE (CUTOFF=200); BENZODIAZEPINES SCREEN,URINE NEGATIVE (CUTOFF=150); BUPRENORPHINE SCREEN,URINE NEGATIVE (CUTOFF=10); METHADONE SCREEN, URINE NEGATIVE (CUTOFF=200); METHAMPHETAMINES SCREEN, URINE NEGATIVE (CUTOFF=500); OXYCODONE SCREEN,URINE NEGATIVE (CUT0FF=100); PCP SCREEN,URINE NEGATIVE (CUTOFF=25); THC SCREEN,URINE 20 NG/ML PRESUMPTIVE POSITIVE (CUTOFF=50)
== END 2023-12-20 13:38 | disposition home or self-care (01) ==
LOC: MW.ED 11:32
DX: F12.90 Cannabis use, unspecified, uncomplicated (principal); R00.2 Palpitations; R00.0 Tachycardia, unspecified; R82.5 Elevated urine levels of drugs, medicaments and biological substances; Z75.8 Other problems related to medical facilities and other health care; Z79.899 Other long term (current) drug therapy; Z90.49 Acquired absence of other specified parts of digestive tract
CPT/HCPCS: 36415; 71045; 80053; 80305; 81003; 81025; 83735; 83880; 84484; 85025; 93005; 96360; 99285; J7030

== ENCOUNTER 2023-12-20 16:37 | Emergency (ER) | payer OTHER, BC ==
[2023-12-20 18:12] LABS: CORONAVIRUS COVID-19 NAA NEGATIVE (NEGATIVE); INFLUENZA A NAA NEGATIVE (NEGATIVE); INFLUENZA B NAA NEGATIVE (NEGATIVE)
[2023-12-20 18:22] LABS: TSH ULTRASENSITIVE 1.44 uIU/mL (0.36-3.74)
== END 2023-12-20 19:10 | disposition home or self-care (01) ==
LOC: MW.ED 16:37
DX: F41.9 Anxiety disorder, unspecified (principal); R00.2 Palpitations; R07.9 Chest pain, unspecified; K21.9 Gastro-esophageal reflux disease without esophagitis; Z79.899 Other long term (current) drug therapy; Z90.49 Acquired absence of other specified parts of digestive tract
CPT/HCPCS: 0240U; 36415; 84443; 84484; 93005; 99285; 93010

== ENCOUNTER 2024-06-30 08:45 | Day surgery (SDC) | payer BC, OTHER ==
[~2024-06-30 08:45] MED LIST: Sodium Chloride 0.9% 10 ML Syringe FLUSH PRN; Sodium Chloride 0.9% 2.5 ML Syringe FLUSH PRN; Sodium Chloride 0.9% 20 ML SDV IV PRN
[2024-06-30] MEDS: Lactated Ringers 1,000 ML IV SCH (09:15)
[2024-06-30] MEDS ORDERED: Propofol 200 MG/20 ML SDV ONE (11:01)
[2024-06-30] MEDS ORDERED: Lidocaine 1% 5 ML VIAL ONE (11:02)
== END 2024-06-30 11:45 | disposition home or self-care (01) ==
LOC: MW.SDS 08:45
PROVIDERS: ATTEND Surgery
DX: K29.70 Gastritis, unspecified, without bleeding (principal); K44.9 Diaphragmatic hernia without obstruction or gangrene; K21.9 Gastro-esophageal reflux disease without esophagitis; T18.2XXA Foreign body in stomach, initial encounter; E66.01 Morbid (severe) obesity due to excess calories; Z88.8 Allergy status to other drugs, medicaments and biological substances; Z87.891 Personal history of nicotine dependence; Z86.16 Personal history of COVID-19; Z79.899 Other long term (current) drug therapy; Z68.37 Body mass index [BMI] 37.0-37.9, adult
CPT/HCPCS: 43239; 81025; J2003; J2704; J7120; 00731

== ENCOUNTER 2024-07-04 16:16 | Emergency (ER) | payer BC, OTHER ==
[2024-07-04 17:20] LABS: BASOPHILS ABSOLUTE AUTO 0.04 K/uL (0.00-0.20); BASOPHILS PERCENT AUTO 0.4 % (0.0-1.0); HEMATOCRIT 43.3 % (37.0-47.0); HEMOGLOBIN 15.1 g/dL (12.0-16.0); IMMATURE GRAN ABSOLUTE AUTO 0.02 K/uL (0.00-0.05); IMMATURE GRAN PERCENT AUTO 0.2 % (0.0-0.4); LYMPHOCYTES PERCENT AUTO 28.1 % (24.0-44.0); MEAN CORPUSCULAR HEMOGLOBIN 30.8 pg (28.0-32.0); MEAN CORPUSCULAR HGB CONC 34.9 g/dL (32.0-36.0); MEAN CORPUSCULAR VOLUME 88.2 fL (83.0-99.0); MEAN PLATELET VOLUME 9.3 fL (9.4-12.3); MONOCYTES ABSOLUTE AUTO 0.65 K/uL (0.00-0.80); MONOCYTES PERCENT AUTO 6.5 % (0.0-8.0); NEUTROPHILS ABSOLUTE AUTO 6.27 K/uL (1.80-7.70); NEUTROPHILS PERCENT AUTO 62.8 % (41.0-71.0); PLATELET COUNT,PLT 238 K/uL (150-400); RED BLOOD CELL COUNT 4.91 M/uL (4.10-5.30); WHITE BLOOD CELL COUNT,WBC 9.98 K/uL (3.9-11.3)
[2024-07-04] MEDS: Alum Hydrox/Mag Hydrox/Simeth 15 ML, Lidocaine 2% 5 ML PO STA (17:55)
[2024-07-04 17:57] LABS: A/G RATIO 0.9 (0.9-1.6); ALBUMIN 3.8 g/dL (3.4-5.0); BILIRUBIN TOTAL 0.4 mg/dL (0.2-1.0); CALCIUM 8.7 mg/dL (8.5-10.1); CARBON DIOXIDE,CO2 23.5 mmol/L (21.0-32.0); CREATININE 0.8 mg/dL (0.6-1.0); EST CRCL DRUG DOSING (CG) 91.21 mL/min; POTASSIUM,K 4.2 mmol/L (3.5-5.1); PROTEIN TOTAL,TP 7.8 g/dL (6.4-8.2)
== END 2024-07-04 19:04 | disposition home or self-care (01) ==
LOC: MW.ED 16:16
DX: R10.11 Right upper quadrant pain (principal); E66.9 Obesity, unspecified; Z68.36 Body mass index [BMI] 36.0-36.9, adult; Z90.49 Acquired absence of other specified parts of digestive tract; Z88.8 Allergy status to other drugs, medicaments and biological substances; Z79.899 Other long term (current) drug therapy; Z75.8 Other problems related to medical facilities and other health care
CPT/HCPCS: 36415; 80053; 83690; 84703; 85025; 99284; A9270; 99283